=== PATIENT | male | born 1975 | race Caucasian/White ===

== ENCOUNTER 2020-12-27 08:57 | Day surgery (SDC) | payer BC, MEDICAID ==
[~2020-12-27] VITALS: Ht 182.9 cm; Wt 105.3 kg
[2020-12-27] MEDS ORDERED: normal saline 1000ml 1,000 ML IV SCH (09:25)
[2020-12-27] MEDS ORDERED: OXYC15TA48 PO (09:54)
[2020-12-27] MEDS ORDERED: LOSA25TA96 PO (09:54)
[2020-12-27] MEDS ORDERED: METO-477 PO (09:54)
[2020-12-27] MEDS ORDERED: METH-603 PO (09:54)
[2020-12-27] MEDS ORDERED: OMEP40CA21 PO (09:54)
[2020-12-27] MEDS ORDERED: NAPR-56 PO (09:54)
[2020-12-27 10:30] VITALS: BP 125/79
--- NOTE | 2020-12-27 11:30 | NUR ---
Dr. Alvarez at bedside cancelled procedure due to pt being Covid positive.
== END 2020-12-27 11:30 | disposition home or self-care (01) ==
LOC: SSTAY O 08:57
PROVIDERS: ATTEND Radiology Vascular & Interventional Radiology
DX: M89.8X9 Other specified disorders of bone, unspecified site (principal); Z53.8 Procedure and treatment not carried out for other reasons; U07.1 COVID-19; I11.9 Hypertensive heart disease without heart failure; Z98.890 Other specified postprocedural states; Z85.048 Personal history of other malignant neoplasm of rectum, rectosigmoid junction, and anus; Z79.899 Other long term (current) drug therapy
CPT/HCPCS: 87635; C9803